=== PATIENT | female | born 1975 | race Caucasian/White ===

== ENCOUNTER → 2023-06-19 09:02 | Outpatient (REF) | payer OTHER, SELFPAY | LOC: HWRAD 09:02 | PROVIDERS: ATTENDING PHYSICIAN Nurse Practitioner Family | DX: M54.2 Cervicalgia (principal) | CPT/HCPCS: 72050 ==

== ENCOUNTER → 2023-07-10 08:13 | Outpatient (REF) | payer OTHER, SELFPAY | LOC: HWRAD 08:13 | PROVIDERS: ATTENDING PHYSICIAN Psychiatry & Neurology Neurology; FAMILY PHYSICIAN Family Medicine | DX: M77.9 Enthesopathy, unspecified (principal) | CPT/HCPCS: 70482; Q9967 ==